=== PATIENT | female | born 1945 | race African-American/Black ===

== ENCOUNTER 2018-07-07 20:14 | Emergency (ER) | payer MEDICARE, OTHER ==
[~2018-07-07] VITALS: Ht 157.5 cm; Wt 61.2 kg
[2018-07-07] MEDS ORDERED: ATORVASTATIN CA10 MG ORAL (20:32)
[2018-07-07] MEDS ORDERED: MELATONIN1 MG PO (20:32)
[2018-07-07] MEDS ORDERED: NOVOLOG100 UNITS1 (20:32)
[2018-07-07] MEDS ORDERED: AMBIEN CR6.25 MG ORAL (20:32)
[2018-07-07] MEDS ORDERED: DOXEPIN HCL10 M1 PO (20:32)
[2018-07-07] MEDS ORDERED: APRESOLINE50 MG ORAL (20:32)
[2018-07-07] MEDS ORDERED: PROTONIX20 MG ORAL (20:32)
[2018-07-07] MEDS ORDERED: GLUCOPHAGE1000 MG ORAL (20:32)
[2018-07-07] MEDS ORDERED: NORVASC10 MG ORAL (20:32)
[2018-07-07] MEDS ORDERED: ARICEPT23 MG ORAL (20:32)
[2018-07-07] MEDS ORDERED: ASPIRIN-LOW81 MG ORAL (20:32)
[2018-07-07] MEDS ORDERED: SERTRALINE HCL25 MG ORAL (20:32)
[2018-07-07] MEDS ORDERED: LISINOPRIL20 MG ORAL (20:32)
[2018-07-07] MEDS ORDERED: METOPROLOL TART50 M1 ORAL (20:32)
[2018-07-07 21:04] LABS: BASOPHILS % (AUTO) 1.9 % (0.0-2.0); EOSINOPHILS % (AUTO) 0.4 % (0.0-3.0); HEMATOCRIT 39.3 % (37.0-47.0); HEMOGLOBIN 13.3 G/DL (12.0-16.0); LYMPHOCYTES % (AUTO) 39.9 % (20.0-45.0); MEAN CORPUSCULAR VOLUME 87 FL (80-99); MONOCYTES % (AUTO) 8.9 % (1.0-10.0); PLATELET COUNT 286 K/UL (150-450); RED BLOOD COUNT 4.54 M/UL (4.20-5.40); RED CELL DISTRIBUTION WIDTH 12.8 % (11.6-14.8); WHITE BLOOD COUNT 5.5 K/UL (4.8-10.8)
[2018-07-07 21:15] VITALS: BP 194/66
--- NOTE | 2018-07-07 21:15 | Diagnostic Imaging Report ---
EXAM: CT Head Without Intravenous Contrast CLINICAL HISTORY: AMS TECHNIQUE: Axial computed tomography images of the head/brain without intravenous contrast. CTDI is 70.38 mGy and DLP is 1435 mGy-cm. One or more of the following dose reduction techniques were used: automated exposure control, adjustment of the mA and/or kV according to patient size, use of iterative reconstruction technique. COMPARISON: No relevant prior studies available. FINDINGS: Brain: No intracranial hemorrhage or mass effect. No clear acute large vessel territorial infarct. Chronic lacunar infarcts to the right basal ganglia and cotto radiata and centrum semiovale. Generalized involutional and microvascular ischemic changes. Ventricles: Distention of the frontal horn of the right lateral ventricle is an ex vacuo response to adjacent encephalomalacia. Bones/joints: Unremarkable. No acute fracture. Soft tissues: Unremarkable. Sinuses: Unremarkable as visualized. No acute sinusitis. Mastoid air cells: Unremarkable as visualized. No mastoid effusion. IMPRESSION: No acute intracranial process. Chronic findings as described.
[2018-07-07 21:27] LABS: ANION GAP 11 mmol/L (5-15); BLOOD UREA NITROGEN 21 mg/dL (7-18); CALCIUM 9.5 MG/DL (8.5-10.1); CARBON DIOXIDE 26 MMOL/L (21-32); CHLORIDE 108 MMOL/L (98-107); CREATININE 0.9 MG/DL (0.55-1.30); POTASSIUM 3.5 MMOL/L (3.5-5.1); SODIUM 145 MMOL/L (136-145)
[2018-07-07 21:40] LABS: ALANINE AMINOTRANSFERASE 16 U/L (12-78); ALBUMIN 3.9 G/DL (3.4-5.0); ALBUMIN/GLOBULIN RATIO 1.2 (1.0-2.7); ALKALINE PHOSPHATASE 67 U/L (46-116); ASPARTATE AMINO TRANSFERASE 16 U/L (15-37); BILIRUBIN,TOTAL 0.4 MG/DL (0.2-1.0)
[2018-07-07 22:00] VITALS: BP 172/68
--- NOTE | 2018-07-07 22:52 | Emergency Room Report ---
History of Present Illness General Chief Complaint: Generalized Weakness Present Illness HPI Patient is a 73-year-old female presented after increased generalized weakness. Patient gradual onset of symptoms. Patient was noted to have increased lethargy and increased muscle spasming. Patient had recently been seen at [facility]. She had been followed by Dr. Torres. Patient was brought in by family member. Patient was noted to have multiple CVAs in the past. Patient had prior history of hypertension. She is diabetic.Patient had not been taking any pain medications but reported having diffuse muscle aches. Allergies: Coded Allergies: No Known Allergies (Unverified , 07/07/18) Patient History Past Medical History: see triage record Reviewed Nursing Documentation: PMH: Agreed; PSxH: Agreed Nursing Documentation-PMH Past Medical History: No Stated History Hx Hypertension: Yes Hx Diabetes: Yes Hx Cerebrovascular Accident: Yes - spinal spondylosis, Review of Systems All Other Systems: limited - by poor historian Physical Exam Vital Signs Date Time Temp Pulse Resp B/P (MAP) Pulse Ox O2 Delivery O2 Flow Rate FiO2 07/07/18 20:09 97.3 70 16 97 Room Air 07/07/18 20:58 207/55 Sp02 EP Interpretation: reviewed, normal General Appearance: normal inspection, alert, GCS 15, lethargic, Chronically Ill Head: atraumatic ENT: normal ENT inspection, hearing grossly normal, other - dysarthric Neck: normal inspection, supple, no bony tend, limited range of motion Respiratory: normal inspection, lungs clear, normal breath sounds, no respiratory distress, no retraction, no wheezing Cardiovascular #1: regular rate, rhythm, no edema Gastrointestinal: normal inspection, normal bowel sounds, non tender, soft, no guarding, no hernia Genitourinary: no CVA tenderness Musculoskeletal: decreased range of motion Neurologic: normal inspection, alert, responsive, other - dysarthric, oriented Psychiatric: normal inspection, judgement/insight normal, mood/affect normal Skin: normal inspection, normal color, no rash Medical Decision Making Diagnostic Impression: Primary Impression: Episode of generalized weakness Additional Impressions: Diabetes Uncontrolled hypertension History of CVA (cerebrovascular accident) ER Course Patient presented for generalized weakness. Differential diagnosis included was not limited to anemia, urinary tract infection, electrolyte abnormality, hypothyroidism, myocardial infarction, myasthenia gravis, dehydration, among others. Because of complexity of patient's case laboratory testing and imaging studies were ordered. Laboratory testing showed evidence of diabetes. Patient was noted to have no focal deficit. CT the head read by radiology showed no evidence of acute CVA. Patient was endorsed to pending final disposition Labs Test 07/07/18 20:30 White Blood Count 5.5 K/UL (4.8-10.8) Red Blood Count 4.54 M/UL (4.20-5.40) Hemoglobin 13.3 G/DL (12.0-16.0) Hematocrit 39.3 % (37.0-47.0) Mean Corpuscular Volume 87 FL (80-99) Mean Corpuscular Hemoglobin 29.3 PG (27.0-31.0) Mean Corpuscular Hemoglobin Concent 33.8 G/DL (32.0-36.0) Red Cell Distribution Width 12.8 % (11.6-14.8) Platelet Count 286 K/UL (150-450) Mean Platelet Volume 6.1 FL (6.5-10.1) Neutrophils (%) (Auto) 49.0 % (45.0-75.0) Lymphocytes (%) (Auto) 39.9 % (20.0-45.0) Monocytes (%) (Auto) 8.9 % (1.0-10.0) Eosinophils (%) (Auto) 0.4 % (0.0-3.0) Basophils (%) (Auto) 1.9 % (0.0-2.0) Erythrocyte Sedimentation Rate 17 MM/HR (0-30) Sodium Level 145 MMOL/L (136-145) Potassium Level 3.5 MMOL/L (3.5-5.1) Chloride Level 108 MMOL/L (98-107) Carbon Dioxide Level 26 MMOL/L (21-32) Anion Gap 11 mmol/L (5-15) Blood Urea Nitrogen 21 mg/dL (7-18) Creatinine 0.9 MG/DL (0.55-1.30) Estimat Glomerular Filtration Rate mL/min (>60) Glucose Level 137 MG/DL (74-106) Lactic Acid Level 1.00 mmol/L (0.4-2.0) Calcium Level 9.5 MG/DL (8.5-10.1) Total Bilirubin 0.4 MG/DL (0.2-1.0) Aspartate Amino Transf (AST/SGOT) 16 U/L (15-37) Alanine Aminotransferase (ALT/SGPT) 16 U/L (12-78) Alkaline Phosphatase 67 U/L (46-116) Troponin I 0.125 ng/mL (0.000-0.056) Total Protein 7.1 G/DL (6.4-8.2) Albumin 3.9 G/DL (3.4-5.0) Globulin 3.2 g/dL Albumin/Globulin Ratio 1.2 (1.0-2.7) Lipase 65 U/L (73-393) Thyroid Stimulating Hormone (TSH) 0.811 uiU/mL (0.358-3.740) Last Vital Signs Date Time Temp Pulse Resp B/P (MAP) Pulse Ox O2 Delivery O2 Flow Rate FiO2 07/07/18 22:00 98.1 67 18 172/68 100 Room Air Status: unchanged [facility] Condition: Stable Cornell Harris MD July 07, 2018 22:52
--- NOTE | 2018-07-07 23:15 | Diagnostic Imaging Report ---
EXAM: XR Chest, 1 View CLINICAL HISTORY: SOB TECHNIQUE: Frontal view of the chest. COMPARISON: No relevant prior studies available. FINDINGS: Lungs: Unremarkable. No consolidation. Pleural space: Unremarkable. No pneumothorax. Heart: Heart size is borderline, likely exaggerated by portable technique. Mediastinum: Unremarkable. Bones/joints: Mild thoracic dextrocurvature. Mild degenerative changes. IMPRESSION: No evidence of acute pulmonary disease.
[2018-07-08] VITALS: BP 185/81
[2018-07-08 02:35] VITALS: BP 170/85
[2018-07-08 02:51] VITALS: BP 170/85
== END 2018-07-08 02:54 | disposition short-term general hospital (02) ==
LOC: EDBD 20:14 → EMR 21:00
DX: I10 Essential (primary) hypertension (principal); E11.9 Type 2 diabetes mellitus without complications; R53.1 Weakness; Z86.73 Personal history of transient ischemic attack (TIA), and cerebral infarction without residual deficits; M47.819 Spondylosis without myelopathy or radiculopathy, site unspecified; R41.82 Altered mental status, unspecified
CPT/HCPCS: 36415; 70450; 71045; 80053; 83605; 83690; 84443; 84484; 85025; 85651; 87040; 93005; 96374; 99284; J0360

== ENCOUNTER 2019-08-12 16:05 | Emergency (ER) | payer MEDICARE, MEDICAID ==
[~2019-08-12] VITALS: Ht 162.6 cm; Wt 59.0 kg
[2019-08-12] VITALS (7 sets, daily range): BP systolic 145–216; BP diastolic 90–104
[~2019-08-12 16:05] MED LIST: AMBIEN CR6.25 MG ORAL; APRESOLINE50 MG ORAL; ARICEPT23 MG ORAL; ASPIRIN-LOW81 MG ORAL; ATORVASTATIN CA10 MG ORAL; DOXEPIN HCL10 M1 PO; GLUCOPHAGE1000 MG ORAL; LISINOPRIL20 MG ORAL; MELATONIN1 MG PO; METOPROLOL TART50 M1 ORAL; NORVASC10 MG ORAL; NOVOLOG100 UNITS1; PROTONIX20 MG ORAL; SERTRALINE HCL25 MG ORAL
[2019-08-12] MEDS ORDERED: ALBUTEROL SULF8.5 G1 INH (16:07)
--- NOTE | 2019-08-12 16:08 | NUR ---
ED Nurse Note: Patient CHRIS RA26 from home due to SOB x cpuple hours ago. Stated she breathes faster carina usual. AAOx4, verbally responsive. Pt is hard of hearing. No acute distress at this moment. 99% RA. Afebrile. Pt placed in a room. Isolation precaution observed.
--- NOTE | 2019-08-12 16:15 | NUR ---
ED Nurse Note: IV line established by ERMD captain assistant, patent and intact. Blood specimen collected and sent to lab.
--- NOTE | 2019-08-12 16:36 | NUR ---
ED Nurse Note: Xray at bedside.
--- NOTE | 2019-08-12 16:50 | NUR ---
ED Nurse Note: Urine specimen collected and sent to lab.
[2019-08-12 16:54] LABS: BASOPHILS % (AUTO) 2.3 % (0.0-2.0); HEMATOCRIT 41.5 % (37.0-47.0); LYMPHOCYTES % (AUTO) 41.9 % (20.0-45.0); MEAN CORPUSCULAR VOLUME 96 FL (80-99); NEUTROPHILS % (AUTO) 47.8 % (45.0-75.0); PLATELET COUNT 254 K/UL (150-450); RED BLOOD COUNT 4.33 M/UL (4.20-5.40); RED CELL DISTRIBUTION WIDTH 14.3 % (11.6-14.8); WHITE BLOOD COUNT 6.4 K/UL (4.8-10.8)
--- NOTE | 2019-08-12 17:00 | Diagnostic Imaging Report ---
History: CP Exam: XR CXR 1 VIEW Comparison: 07/07/2018 FINDINGS: The lungs are clear. The cardiac silhouette is again upper limits for technique. The cardiac and mediastinal contours are within limits. IMPRESSION: No evidence of acute disease.
[2019-08-12 17:01] LABS: ANION GAP 10 mmol/L (5-15); BLOOD UREA NITROGEN 16 mg/dL (7-18); CALCIUM 8.9 MG/DL (8.5-10.1); CARBON DIOXIDE 25 MMOL/L (21-32); CHLORIDE 105 MMOL/L (98-107); CREATININE 0.9 MG/DL (0.55-1.30); POTASSIUM 3.8 MMOL/L (3.5-5.1); SODIUM 140 MMOL/L (136-145)
[2019-08-12 17:08] LABS: APPEARANCE,URINE CLEAR; BILIRUBIN, URINE NEGATIVE (NEGATIVE); COLOR,URINE PALE YELLOW; GLUCOSE, URINE (UA) NEGATIVE (NEGATIVE); KETONES,URINE NEGATIVE (NEGATIVE); LEUKOCYTE ESTERASE ,URINE NEGATIVE (NEGATIVE); NITRITE,URINE NEGATIVE (NEGATIVE); PH,URINE 8 (4.5-8.0); PROTEIN,URINE 2+ (NEGATIVE); UROBILINOGEN,URINE NORMAL MG/DL (0.0-1.0)
[2019-08-12 17:14] LABS: ALANINE AMINOTRANSFERASE 18 U/L (12-78); ALBUMIN 3.7 G/DL (3.4-5.0); ALBUMIN/GLOBULIN RATIO 1.1 (1.0-2.7); ALKALINE PHOSPHATASE 53 U/L (46-116); ASPARTATE AMINO TRANSFERASE 22 U/L (15-37); BILIRUBIN,TOTAL 0.4 MG/DL (0.2-1.0); CKMB 0.8 NG/ML (0.0-3.6); CREATINE KINASE 86 U/L (26-308)
[2019-08-12] MEDS ORDERED: Enoxaparin 60mg Inj SUBQ ONE (17:30)
--- NOTE | 2019-08-12 17:41 | Emergency Room Report ---
History of Present Illness General Chief Complaint: Dyspnea/Respdistress Source: Patient Present Illness HPI Patient presents with complaints of shortness of breath patient is somewhat of a poor historian Denies any chest pain denies any vomiting However cannot report any further input regarding exacerbating factors Denies any fevers denies any focal weakness Denies any pleurisy Allergies: Coded Allergies: No Known Allergies (Unverified , 07/07/18) COVID-19 Screening Contact w/high risk pt: No Recent Travel to affected area: No Experienced COVID-19 symptoms?: Yes COVID-19 symptoms experienced: Shortness of Breath COVID-19 Testing performed CLIENT SERVICES SPECIALIST: No Patient History Past Medical History: see triage record Reviewed Nursing Documentation: PMH: Agreed; PSxH: Agreed Nursing Documentation-PMH Hx Cardiac Problems: Yes Hx Hypertension: Yes Hx Diabetes: Yes Hx Cerebrovascular Accident: Yes - spinal spondylosis, Review of Systems All Other Systems: negative except mentioned in HPI Physical Exam Vital Signs Date Time Temp Pulse Resp B/P (MAP) Pulse Ox O2 Delivery O2 Flow Rate FiO2 08/12/19 15:58 97.9 65 18 212/104 (140) 99 Room Air Sp02 EP Interpretation: reviewed, normal General Appearance: well appearing, no apparent distress Head: normocephalic, atraumatic Eyes: bilateral eye PERRL, bilateral eye EOMI ENT: hearing grossly normal, normal pharynx, TMs + canals normal, uvula midline Neck: full range of motion, supple, no meningismus, no bony tend Respiratory: lungs clear, normal breath sounds, no rhonchi, no respiratory distress, no retraction, no accessory muscle use Cardiovascular #1: normal peripheral pulses, regular rate, rhythm, no edema, no gallop, no JVD, no murmur Gastrointestinal: normal bowel sounds, non tender, soft, no mass, no organomegaly, non-distended, no guarding, no hernia, no pulsatile mass, no rebound Genitourinary: no CVA tenderness Musculoskeletal: normal inspection Neurologic: sensory intact, responsive Psychiatric: mood/affect normal Skin: no rash Lymphatic: normal inspection, no adenopathy Medical Decision Making Diagnostic Impression: Primary Impression: Elevated troponin ER Course Patient is a fairly complex patient with multiple differential to consideration including but not limited to cardiac cardiopulmonary and vascular emergencies Given the patient's complaint and presentation covid-19 Also entertained Patient has further hydration performed Troponin is elevated Patient's EKG does not show any obvious ST elevations she is provided with Lovenox and admitted for further care Labs Test 08/12/19 16:30 08/12/19 16:52 White Blood Count 6.4 K/UL (4.8-10.8) Red Blood Count 4.33 M/UL (4.20-5.40) Hemoglobin 13.0 G/DL (12.0-16.0) Hematocrit 41.5 % (37.0-47.0) Mean Corpuscular Volume 96 FL (80-99) Mean Corpuscular Hemoglobin 30.1 PG (27.0-31.0) Mean Corpuscular Hemoglobin Concent 31.4 G/DL (32.0-36.0) Red Cell Distribution Width 14.3 % (11.6-14.8) Platelet Count 254 K/UL (150-450) Mean Platelet Volume 6.9 FL (6.5-10.1) Neutrophils (%) (Auto) 47.8 % (45.0-75.0) Lymphocytes (%) (Auto) 41.9 % (20.0-45.0) Monocytes (%) (Auto) 7.0 % (1.0-10.0) Eosinophils (%) (Auto) 1.0 % (0.0-3.0) Basophils (%) (Auto) 2.3 % (0.0-2.0) Sodium Level 140 MMOL/L (136-145) Potassium Level 3.8 MMOL/L (3.5-5.1) Chloride Level 105 MMOL/L (98-107) Carbon Dioxide Level 25 MMOL/L (21-32) Anion Gap 10 mmol/L (5-15) Blood Urea Nitrogen 16 mg/dL (7-18) Creatinine 0.9 MG/DL (0.55-1.30) Estimat Glomerular Filtration Rate > 60 mL/min (>60) Glucose Level 78 MG/DL (74-106) Lactic Acid Level 1.40 mmol/L (0.4-2.0) Calcium Level 8.9 MG/DL (8.5-10.1) Total Bilirubin 0.4 MG/DL (0.2-1.0) Aspartate Amino Transf (AST/SGOT) 22 U/L (15-37) Alanine Aminotransferase (ALT/SGPT) 18 U/L (12-78) Alkaline Phosphatase 53 U/L (46-116) Total Creatine Kinase 86 U/L (26-308) Creatine Kinase MB 0.8 NG/ML (0.0-3.6) Creatine Kinase MB Relative Index 0.9 Troponin I 0.112 ng/mL (0.000-0.056) Pro-B-Type Natriuretic Peptide 1608 pg/mL (0-125) Total Protein 7.0 G/DL (6.4-8.2) Albumin 3.7 G/DL (3.4-5.0) Globulin 3.3 g/dL Albumin/Globulin Ratio 1.1 (1.0-2.7) Lipase 96 U/L (73-393) Urine Color Pale yellow Urine Appearance Clear Urine pH 8 (4.5-8.0) Urine Specific [place] 1.010 (1.005-1.035) Urine Protein 2+ (NEGATIVE) Urine Glucose (UA) Negative (NEGATIVE) Urine Ketones Negative (NEGATIVE) Urine Blood Negative (NEGATIVE) Urine Nitrite Negative (NEGATIVE) Urine Bilirubin Negative (NEGATIVE) Urine Urobilinogen Normal MG/DL (0.0-1.0) Urine Leukocyte Esterase Negative (NEGATIVE) Urine RBC 0-2 /HPF (0 - 2) Urine WBC 0 /HPF (0 - 2) Urine Squamous Epithelial Cells Moderate /LPF (NONE/OCC) Urine Amorphous Sediment Many /LPF (NONE) Urine Bacteria Few /HPF (NONE) Labs Test 08/12/19 16:30 08/12/19 16:52 White Blood Count 6.4 K/UL (4.8-10.8) Red Blood Count 4.33 M/UL (4.20-5.40) Hemoglobin 13.0 G/DL (12.0-16.0) Hematocrit 41.5 % (37.0-47.0) Mean Corpuscular Volume 96 FL (80-99) Mean Corpuscular Hemoglobin 30.1 PG (27.0-31.0) Mean Corpuscular Hemoglobin Concent 31.4 G/DL (32.0-36.0) Red Cell Distribution Width 14.3 % (11.6-14.8) Platelet Count 254 K/UL (150-450) Mean Platelet Volume 6.9 FL (6.5-10.1) Neutrophils (%) (Auto) 47.8 % (45.0-75.0) Lymphocytes (%) (Auto) 41.9 % (20.0-45.0) Monocytes (%) (Auto) 7.0 % (1.0-10.0) Eosinophils (%) (Auto) 1.0 % (0.0-3.0) Basophils (%) (Auto) 2.3 % (0.0-2.0) Sodium Level 140 MMOL/L (136-145) Potassium Level 3.8 MMOL/L (3.5-5.1) Chloride Level 105 MMOL/L (98-107) Carbon Dioxide Level 25 MMOL/L (21-32) Anion Gap 10 mmol/L (5-15) Blood Urea Nitrogen 16 mg/dL (7-18) Creatinine 0.9 MG/DL (0.55-1.30) Estimat Glomerular Filtration Rate > 60 mL/min (>60) Glucose Level 78 MG/DL (74-106) Lactic Acid Level 1.40 mmol/L (0.4-2.0) Calcium Level 8.9 MG/DL (8.5-10.1) Total Bilirubin 0.4 MG/DL (0.2-1.0) Aspartate Amino Transf (AST/SGOT) 22 U/L (15-37) Alanine Aminotransferase (ALT/SGPT) 18 U/L (12-78) Alkaline Phosphatase 53 U/L (46-116) Total Creatine Kinase 86 U/L (26-308) Creatine Kinase MB 0.8 NG/ML (0.0-3.6) Creatine Kinase MB Relative Index 0.9 Troponin I 0.112 ng/mL (0.000-0.056) Pro-B-Type Natriuretic Peptide 1608 pg/mL (0-125) Total Protein 7.0 G/DL (6.4-8.2) Albumin 3.7 G/DL (3.4-5.0) Globulin 3.3 g/dL Albumin/Globulin Ratio 1.1 (1.0-2.7) Lipase 96 U/L (73-393) Urine Color Pale yellow Urine Appearance Clear Urine pH 8 (4.5-8.0) Urine Specific [place] 1.010 (1.005-1.035) Urine Protein 2+ (NEGATIVE) Urine Glucose (UA) Negative (NEGATIVE) Urine Ketones Negative (NEGATIVE) Urine Blood Negative (NEGATIVE) Urine Nitrite Negative (NEGATIVE) Urine Bilirubin Negative (NEGATIVE) Urine Urobilinogen Normal MG/DL (0.0-1.0) Urine Leukocyte Esterase Negative (NEGATIVE) Urine RBC 0-2 /HPF (0 - 2) Urine WBC 0 /HPF (0 - 2) Urine Squamous Epithelial Cells Moderate /LPF (NONE/OCC) Urine Amorphous Sediment Many /LPF (NONE) Urine Bacteria Few /HPF (NONE) EKG Diagnostic Results Rate: normal Rhythm: NSR ST Segments: other - Nonspecific ST and T wave changes Rhythm Strip Diag. Results EP Interpretation: yes Rate: 77 Rhythm: NSR, no PVC's, no ectopy Chest X-Ray Diagnostic Results Chest X-Ray Diagnostic Results : Chest X-Ray Ordered: Yes # of Views/Limited/Complete: 1 View Indication: Chest Pain EP Interpretation: Yes Interpretation: no consolidation, no effusion, no pneumothorax Impression: No acute disease Electronically Signed by: Delmy Peoples DO Last Vital Signs Date Time Temp Pulse Resp B/P (MAP) Pulse Ox O2 Delivery O2 Flow Rate FiO2 08/12/19 16:08 65 18 Room Air 08/12/19 16:08 97.9 212/104 99 Status: improved Disposition: ADMITTED INPATIENT Condition: Serious Referrals: NON PHYSICIAN (PCP) Delmy Peoples DO Aug 12, 2019 17:41
--- NOTE | 2019-08-12 18:36 | NUR ---
ED Nurse Note: BP 216/101, rechecked twice. ERMD notified. Hydralazine 0.5ml given as ordered.
--- NOTE | 2019-08-12 19:14 | NUR ---
HAND-OFF: Report given to Danny HUFFMAN. Endorsed plan of care.
--- NOTE | 2019-08-12 19:15 | NUR ---
ED Nurse Note: Report received from NATHANAEL Najera. pt seen in bed resting, no acute distress is noted.
--- NOTE | 2019-08-12 20:52 | NUR ---
ED Nurse Note: PT vomit x 2. vomitus is clear cliquid. SBP still in 190s. ERMD made aware with zofran and hydralazine order. Medication administered and pt tolerated well. will continue to monitor BP and pt closely.
--- NOTE | 2019-08-12 22:24 | NUR ---
ED Nurse Note: Report given to christina from [facility]. [facility] arrived and pt was transfered to [facility] via gurney in stable condition. IV line to left lower arm remain intact.
== END 2019-08-12 22:24 | disposition short-term general hospital (02) ==
LOC: EDBD 16:05 → EMR 16:15
DX: R79.89 Other specified abnormal findings of blood chemistry (principal); E11.9 Type 2 diabetes mellitus without complications; I10 Essential (primary) hypertension; M47.9 Spondylosis, unspecified
CPT/HCPCS: 36415; 71045; 80053; 81003; 82550; 82553; 83605; 83690; 83880; 84484; 85025; 87040; 87181; 93005; 96372; 96374; 96375; 96376; 99285; J0360; J1650; J2405